=== PATIENT | male | born 1930 | race Caucasian/White ===

== ENCOUNTER → 2018-04-25 | Outpatient (CLI) | payer MEDICARE, OTHER ==
[~2018-04-25] MED LIST: ACE3 PO; ADV100/50 INH; ALB17R INH; ALBU8.5H IH; ASPI81TA86 PO; AZI250 PO; AZIT-17 PO; CEPH500C24 PO; ESCI10TA8 PO; FLU IM; FLU180SY11 IM; FLU180SY9 IM; FLUT1DIS28 IH; GLUC500T13 PO; GUAI-108 PO; KET10 PO; MECL25TA9 PO; MELO-207 PO; MET10 PO; METH4TAB66 PO; NAPR220C12 PO; OMEP-125 PO; OMEP-218 PO; PRE20 PO; TIO18R; TYLENOL ARTHRITIS PO
[2018-04-25 09:26] LABS: PLATELET COUNT, AUTOMATED 241 K/uL (150-450)
--- NOTE | 2018-04-25 10:12 | RADIOLOGY IMAGING REPORT ---
FACILITY: [facility] - [place] PATIENT NAME: Fernando Ramos : 1930 MR: [id number] V: [id number] EXAM DATE: ORDERING PHYSICIAN: ASHOK NARANJO TECHNOLOGIST: Location: [facility] [place] Patient: Fernando Ramos : 1930 Visit/Account:[id number] Date of Sevice: 04/25/2018 Lumbar spine Indication: Back pain. Comparison: None available FINDINGS: 3 views of the lumbar spine were obtained. There are 5 lumbar type vertebral bodies. There is no acute osseous or acute alignment abnormality. There is severe diffuse multilevel degenerative disc space disease. Severe disc space narrowing is p resent from L2-3 through L5-S1. There is a mild levoscoliotic curvature centered at L2-3. Large end plate osteophyte formation is present with underlying subchondral sclerosis at this level. 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 No spondylolisthesis is identified. The vertebral body heights appear well-maintained. IMPRESSION: 1. Severe diffuse multilevel degenerative disc space disease Report Dictated By: Keegan Enriquez at 04/25/2018 10:07 AM Report E-Signed By: Keegan Enriquez at 04/25/2018 10:08 AM WSN:[id number]
== END ==
LOC: LAB 08:56
PROVIDERS: ATTEND Internal Medicine
DX: M51.36 Other intervertebral disc degeneration, lumbar region (principal); J44.9 Chronic obstructive pulmonary disease, unspecified; R03.0 Elevated blood-pressure reading, without diagnosis of hypertension; F32.9 Major depressive disorder, single episode, unspecified
CPT/HCPCS: 36415; 72100; 81001; 84443; 85025; G0103; 82040; 82247; 82310; 82374; 82435; 82565; 82947; 84075; 84132; 84153; 84155; 84295; 84450; 84460; 84520